=== PATIENT | male | born 1930 | race Caucasian/White ===

== ENCOUNTER 2017-12-07 06:00 | Inpatient (IN) | payer MEDICARE, MEDICAID ==
[2017-12-07 06:17] VITALS: BP 138/60
[2017-12-07] MEDS ORDERED: Maalox 30 mL Cup PO PRN (06:26)
[2017-12-07] MEDS ORDERED: Magnesium Hydroxide (MOM) 30 mL UDC PO PRN (06:26)
[2017-12-07] MEDS: Multivitamin Tab PO SCH (10:09)
[2017-12-07] MEDS ORDERED: ALLOPURINOL 300 MG PO SCH (10:45)
[2017-12-07] MEDS ORDERED: THEOPHYLLINE ANHYDROUS 200 MG PO SCH (10:45)
[2017-12-07] MEDS ORDERED: Non-Formulary Item 1 EA (Omeprazole [Omeprazole] 20 MG) PO SCH (10:45)
[2017-12-07] MEDS ORDERED: Non-Formulary Item 1 EA (Atenolol [Atenolol] 50 MG) PO SCH (10:45)
[2017-12-07] MEDS: Pantoprazole 40 mg EC Tab PO SCH (12:20)
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
[2017-12-08 07:25] LABS: % BASOPHILS 0.5 % (0.0-2.0); % EOSINOPHILS 3.4 % (0.0-5.0); % LYMPHOCYTES 38.8 % (20.0-50.0); % MONOCYTES 7.4 % (2.0-10.0); % NEUTROPHILS 49.9 % (40.0-80.0); EOSINOPHILE ABSOLUTE 0.3 Th/cmm (0.1-0.4); HEMOGLOBIN 13.7 gm/dL (12-16); LYMPHOCYTE ABSOLUTE 3.5 Th/cmm (1.5-3.0); MEAN CELL VOLUME 95.2 fl (80-99); MEAN CORPUSCULAR HEMOGLOBIN 31.8 pg (27.0-31.0); MEAN CORPUSCULAR HGB CONC 33.4 pg (28.0-36.0); MEAN PLATELET VOLUME 7.3 fl; MONOCYTE ABSOLUTE 0.7 Th/cmm (0.3-1.0); NEUTROPHILE ABSOLUTE 4.4 Th/cmm (1.8-8.0); PLATELET COUNT 200 Th/cmm (150-400); RED BLOOD COUNT 4.31 Mil/cmm (3.80-5.80); RED CELL DISTRIBUTION WIDTH 13.8 % (11.5-20.0); WHITE BLOOD COUNT 8.9 Th/cmm (4.8-10.8)
[2017-12-08 07:39] LABS: ALB/GLOB RATIO 1.2 (1.0-1.8); ALBUMIN 4.4 gm/dL (4.2-5.5); ALKALINE PHOSPHATASE 46 U/L (34-104); ANION GAP 11.7 (7.0-16.0); BILIRUBIN,TOTAL 0.8 mg/dL (0.3-1.0); BUN - UREA NITROGEN 39 mg/dL (7-25); CALCIUM SERUM 10.6 mg/dL (8.6-10.3); CARBON DIOXIDE 29.6 mEq/L (21.0-31.0); CHLORIDE 99 mEq/L (98-107); CREATININE - SERUM 1.8 mg/dL (0.7-1.3); GLUCOSE 109 mg/dL (70-105); POTASSIUM SERUM 3.3 mEq/L (3.5-5.1); SGOT 23 U/L (13-39); SGPT/ALT 10 U/L (7-52); SODIUM SERUM 137 mEq/L (136-145); TOTAL PROTEIN,SERUM 8.1 gm/dL (6.0-8.3)
[2017-12-08] MEDS ORDERED: [UNRECOGNIZED DRUG - OTHER] PO SCH (09:00)
[2017-12-08] MEDS ORDERED: ANTIOX PO SCH (09:00)
[2017-12-08] MEDS ORDERED: [UNRECOGNIZED DRUG - OTHER] PO SCH (09:00)
[2017-12-08] MEDS ORDERED: DHA PO SCH (09:00)
[2017-12-08] MEDS ORDERED: EPA PO SCH (09:00)
[2017-12-08] MEDS ORDERED: ZEAX PO SCH (09:00)
[2017-12-08] MEDS ORDERED: LUT PO SCH (09:00)
[2017-12-08] MEDS ORDERED: VIT BCOMP C PO SCH (09:00)
[2017-12-08] MEDS ORDERED: VITAMIN B COMPLEX PO SCH (09:00)
[2017-12-08] MEDS: Multivitamin Tab PO SCH (09:49)
[2017-12-08] MEDS: Ferrous Sulfate 325 MG TAB PO SCH (09:50)
[2017-12-08] MEDS: Vitamin B Complex w/Vitamin C Tab PO SCH (09:50)
[2017-12-08] MEDS: Pantoprazole 40 mg EC Tab PO SCH (09:50)
[2017-12-08] MEDS ORDERED: Theophylline 200 mg ER Tab PO SCH (11:00)
--- NOTE | 2017-12-08 21:19 | Progress Notes ---
DATE: 12/08/2017 SUBJECTIVE: The patient was seen and evaluated. The patient's chart reviewed. Labs overnight came back with normal limits. Slightly low potassium at 3.3, asymptomatic. Today on [id number] evaluation, the patient continues to report that his is and she is having an extramarital affair in her office. MENTAL STATUS EXAMINATION: ____ disorganized. No side effects to medications. ASSESSMENT AND PLAN: The patient is an 87-year-old male with a history of dementia with behavior disturbances, tolerating the recent addition of ____. We will continue to obtain ____ we allow medication ____. JOB# [id number]
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
[2017-12-09] MEDS: Ferrous Sulfate 325 MG TAB PO SCH (10:09)
[2017-12-09] MEDS: Multivitamin Tab PO SCH (10:10)
[2017-12-09] MEDS: Pantoprazole 40 mg EC Tab PO SCH (10:10)
[2017-12-09] MEDS: Vitamin B Complex w/Vitamin C Tab PO SCH (10:11)
[2017-12-09] MEDS ORDERED: Potassium Chloride 20 mEq ER Tab PO ONE (11:00)
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
--- NOTE | 2017-12-09 23:24 | Progress Notes ---
DATE: PATIENT'S IDENTIFYING DATA: An 87-year-old male patient seen and examined. The patient is anxious to go home, stating that he will be done with his 72-hour hold. The patient is concerned about his eye surgery. On today's exam, the patient denies any chest pain, shortness of breath, palpitation, dizziness, nausea, vomiting, diarrhea. OBJECTIVE: VITAL SIGNS: Temperature 98, pulse is 64, respiratory rate 16, blood pressure 144/80. HEENT: Bilateral cataracts noted. Tongue is pink and coated. Upper and lower dentures noted. NECK: Supple, no JVD. HEART: Regular. Grade 2/6 systolic murmur noted. CHEST: Lungs equal in expansion. No expiratory wheezing. ABDOMEN: Soft. No guarding, rigidity. Bowel sounds present. No palpable mass. EXTREMITIES: No edema. Peripherals are +1. NEUROLOGIC: Alert, awake, follows commands. LABORATORY AND DIAGNOSTIC DATA: Available diagnostic data has been reviewed. CLINICAL IMPRESSION: 1. Hypertension. 2. Coronary artery disease, status post bypass graft. 3. DJD. 4. Hyperlipidemia. 5. BPH. 6. Peripheral neuropathy. 7. Asthma, COPD. 8. Alzheimer dementia. 9. Chronic kidney disease. 10. Bilateral cataracts. PLAN: 1. Psychotic evaluation and management defer to psychiatrist. 2. Antihypertensive medicine. 3. Aspirin and nitrate. 4. Statin. 5. Avoid bladder outlet obstruction. 6. Psych medication. 7. Fall precautions. 8. General nursing care. 9. The patient will be followed by us during his stay to manage the patient's ongoing medical problem. JOB# [id number]
[2017-12-10] MEDS: Vitamin B Complex w/Vitamin C Tab PO SCH (08:20)
[2017-12-10] MEDS: Ferrous Sulfate 325 MG TAB PO SCH (08:20)
[2017-12-10] MEDS: Multivitamin Tab PO SCH (08:20)
[2017-12-10] MEDS: Pantoprazole 40 mg EC Tab PO SCH (08:21)
--- NOTE | 2017-12-10 22:55 | Progress Notes ---
DATE: 12/10/2017 Case was discussed with staff of the patient, reviewed records. The patient continues to be paranoid, continues to have poor insight, impulsive, unpredictable, unable to take care of himself or carry on a conversation. He is compliant with the medication with no side effects, no sedation, and no nausea. We will continue to work with the patient in group therapy, milieu therapy, and adjust the medications as needed. JOB# [id number]
--- NOTE | 2017-12-10 23:11 | Progress Notes ---
DATE: 12/10/2017 SUBJECTIVE: The patient is seen and examined. The patient denies any chest pain, shortness of breath, palpitation, dizziness, nausea or vomiting. OBJECTIVE: VITAL SIGNS: Temperature 97.9, pulse 64, respiratory rate 18, blood pressure 126/64. HEENT: No facial asymmetry. NECK: Supple, no JVD. HEART: Regular. CHEST: Lung equal in expansion. LUNGS: No wheezing, no crackles. ABDOMEN: Soft. EXTREMITIES: No edema. MAR is reviewed. CLINICAL IMPRESSION: 1. Chronic kidney disease. 2. Coronary artery disease, status post bypass graft. 3. Hypertension. 4. Hyperlipidemia. 5. Benign prostatic hypertrophy. 6. Degenerative joint disease. 7. Psychotic disorder. 8. Dementia. 9. High risk for fall. PLAN: 1. Antihypertensive medicine. 2. Aspirin. 3. Imdur. 4. Statins. 5. Proscar and Flomax. 6. Gabapentin. 7. P.r.n. inhalation therapy. 8. Fall precautions. 9. General nursing care. 10. Avoid bladder outlet obstruction. 11. Follow lab. 12. We will continue to follow this patient during the stay in the hospital. JOB# [id number]
[2017-12-11] MEDS: Ferrous Sulfate 325 MG TAB PO SCH (10:46)
[2017-12-11] MEDS: Vitamin B Complex w/Vitamin C Tab PO SCH (10:46)
[2017-12-11] MEDS: Pantoprazole 40 mg EC Tab PO SCH (10:47)
[2017-12-11] MEDS: Multivitamin Tab PO SCH (17:30)
--- NOTE | 2017-12-11 21:55 | Progress Notes ---
DATE: 12/11/2017 Chart reviewed and the patient interviewed. Also discussed the patient's condition with the staff and reviewed records and labs. I also talked to the patient's son. The patient is still agitated and is still in denial of his problems. The patient also is still suspicious and is still paranoid. He also still has difficulty controlling his temper but easier to redirect him. The patient's son is asking to release the patient and he said that he will follow up with father's treatment. I discussed with the patient's son further treatment plans. At the same time, we will continue monitoring the patient's behavior and continue adjusting psychotropic medications and followup. JOB# [id number]
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
--- NOTE | 2017-12-13 01:06 | Progress Notes ---
DATE: 12/12/2017 SUBJECTIVE: The patient was seen and examined. The patient is lying in the bed. No new event. The patient is ambulatory. The patient continues to say he wants to go home. OBJECTIVE: VITAL SIGNS: Temperature 97.5, pulse 64, respiratory rate 18, blood pressure 116/64. HEENT: No facial asymmetry. NECK: Supple, no JVD. HEART: Regular. CHEST: Lung equal in expansion. LUNGS: No wheezing or crackles. ABDOMEN: Soft. EXTREMITIES: No edema. CLINICAL IMPRESSION: 1. Coronary artery disease, status post bypass graft. 2. Asthma, chronic obstructive pulmonary disease. 3. Benign prostatic hypertrophy. 4. Degenerative joint disease. 5. Hypertension. 6. Hyperlipidemia. 7. Coronary artery disease, status post bypass graft. 8. Gout. 9. Psychotic disorder. 10. Dementia. PLAN: 1. Psychotic evaluation and management deferred to psychiatrist. 2. Continue antihypertensive medications. 3. Allopurinol for gout. 4. Continue atenolol and Imdur for coronary artery disease. 5. Continue Lasix as prescribed. 6. Ativan. 7. Protonix GERD. 8. Simvastatin for cholesterol. 9. Silverio-Dur as ordered. The patient will be provided fall precautions. Care plan reviewed and discussed. JOB# [id number]
--- NOTE | 2017-12-15 15:02 | Discharge Summary ---
DATE OF DISCHARGE: 12/12/2017 FINAL DIAGNOSIS/PRIMARY DIAGNOSIS: Unspecified psychosis. SECONDARY DIAGNOSIS: Dementia, moderate, with psychotic features. REASON FOR HOSPITALIZATION: The patient was admitted to the hospital because of increased agitation and threatening his . HOSPITAL COURSE: The patient continued to be in irritable and angry mood. The patient also continued to be slightly confused. He did comply with taking his medications with no side effects of medications. The patient's son asks if the patient can go home and to continue his treatment as an outpatient in my office. PHYSICAL EXAMINATION: Basically showed no major behavior problems. AFTER DISCHARGE PLANS: The patient went home with plans for outpatient treatment and followup. DISCHARGE ACTIVITY: No restrictions. EXPECTED OUTCOME AFTER DISCHARGE: Fair if the patient continues with his outpatient treatment and follow up with discharge plans. [facility]# [id number]
== END 2017-12-12 10:25 | disposition home or self-care (01) | DRG 885 ==
LOC: GERO2 06:00 → GERO 12-09 16:51
PROVIDERS: ADMIT Psychiatry & Neurology Psychiatry; ATTEND Psychiatry & Neurology Psychiatry
DX: F23 Brief psychotic disorder (principal); F02.81 Dementia in other diseases classified elsewhere, unspecified severity, with behavioral disturbance; N18.9 Chronic kidney disease, unspecified; G30.9 Alzheimer's disease, unspecified; F29 Unspecified psychosis not due to a substance or known physiological condition; G62.9 Polyneuropathy, unspecified; E78.5 Hyperlipidemia, unspecified; N40.0 Benign prostatic hyperplasia without lower urinary tract symptoms; I25.10 Atherosclerotic heart disease of native coronary artery without angina pectoris; M19.90 Unspecified osteoarthritis, unspecified site; J44.9 Chronic obstructive pulmonary disease, unspecified; I12.9 Hypertensive chronic kidney disease with stage 1 through stage 4 chronic kidney disease, or unspecified chronic kidney disease; F41.9 Anxiety disorder, unspecified; F32.9 Major depressive disorder, single episode, unspecified; M10.9 Gout, unspecified; H26.9 Unspecified cataract; Z91.81 History of falling; Z95.1 Presence of aortocoronary bypass graft; Z83.3 Family history of diabetes mellitus; Z82.49 Family history of ischemic heart disease and other diseases of the circulatory system
CPT/HCPCS: 36415-UA; 80053-TC; 83970-90; 85025-TC; 90899; Z7610